=== PATIENT | male | born 1985 | race Caucasian/White ===

== ENCOUNTER 2020-02-26 18:17 | Emergency (ER) | payer SELFPAY ==
[~2020-02-26] VITALS: Ht 170.2 cm; Wt 71.2 kg
[2020-02-26 18:40] VITALS: BP 101/81; Ht 170.2 cm; Wt 71.2 kg
== END 2020-02-26 20:02 | disposition left against medical advice (07) ==
LOC: ED 18:17
DX: Z53.21 Procedure and treatment not carried out due to patient leaving prior to being seen by health care provider (principal)